=== PATIENT | male | born 1985 | race Caucasian/White ===

== ENCOUNTER → 2019-01-05 | Outpatient (CLI) | payer BC ==
--- NOTE | 2019-01-05 10:57 | PCVCIMAG ---
APPROVED REPORT Study performed: 01/05/2019 08:05:14 EXAM: Comprehensive 2D, Doppler, and color-flow Echocardiogram Patient Location: Echo lab Status: routine BSA: 2.24 HR: 76 bpmBP: 122/84 mmHg Rhythm: NSR Other Information Study Quality: Adequate Indications Family history of cardiomyopathy and fam hx pacemaker 2D Dimensions IVSd: 9.38 (7-11mm) LVDd: 54.06 mm PWd: 9.47 (7-11mm)Ascending Ao: 31.12 (22-36mm) LVDs: 42.60 (25-40mm) Left Atrium: 42.27 (27-40mm) Aortic Root: 30.72 mm LV Single Plane 4CH: 47.38 % LV Single Plane 2CH: 48.92 % Biplane EF: 48.2 % Volumes Left Atrial Volume (Systole) Single Plane 4CH: 69.90 mLSingle Plane 2CH: 57.25 mL LA ESV Index: 28.00 mL/m2 Aortic Valve AoV Peak Stephen.: 1.14 m/s AO Peak Gr.: 5.20 mmHgLVOT Max P.41 mmHg LVOT Max V: 0.76 m/s Mitral Valve E/A Ratio: 1.6 MV Decel. Time: 195.19 ms MV E Max Stephen.: 0.64 m/s MV A Stephen.: 0.40 m/s IVRT: 103.81 ms Pulmonary Valve PV Peak Stephen.: 0.97 m/sPV Peak Gr.: 3.78 mmHg Pulmonary Vein P Vein S: 0.32 m/sP Vein A: 0.30 m/s P Vein D: 0.51 m/sP Vein A Dur.: 114.2 msec P Vein S/D Ratio: 0.63 Tricuspid Valve TR Peak Stephen.: 2.59 m/s TR Peak Gr.: 26.20 mmHg TV Vmax: 0.54 m/s Left Ventricle The left ventricle is normal size. There is normal LV segmental wall motion. There is normal left ventricular wall thickness. Left ventricular systolic function is borderline lower limits of normal. LVEF is 50%. The left ventricular diastolic function is normal. Right Ventricle The right ventricle is normal size. The right ventricular systolic function is normal. Atria The left atrium size is normal. The right atrium size is normal. Aortic Valve The aortic valve is normal in structure. No aortic regurgitation is present. There is no aortic valvular stenosis. Mitral Valve The mitral valve is normal in structure. There is no mitral valve regurgitation noted. No evidence of mitral valve stenosis. Tricuspid Valve The tricuspid valve is normal in structure. Trace tricuspid regurgitation with PAP of 33 mmHg. Pulmonic Valve The pulmonary valve is normal in structure. There is no pulmonic valvular regurgitation. Great Vessels The aortic root is normal in size. IVC is normal in size and collapses >50% with inspiration. Pericardium There is no pericardial effusion. There is no pleural effusion. <Conclusion> The left ventricle is normal size. There is normal left ventricular wall thickness. Left ventricular systolic function is borderline lower limits of normal. The left ventricular diastolic function is normal. The right ventricle is normal size. The left atrium size is normal. The aortic valve is normal in structure. The mitral valve is normal in structure. Trace tricuspid regurgitation with PAP of 33 mmHg.
== END | disposition home or self-care (01) ==
LOC: PCVCIMAG 08:32
PROVIDERS: ATTEND Family Medicine
DX: I42.9 Cardiomyopathy, unspecified (principal); Z82.49 Family history of ischemic heart disease and other diseases of the circulatory system
CPT/HCPCS: 93306